=== PATIENT | female | born 1970 | race Caucasian/White ===

== ENCOUNTER 2019-07-27 18:47 | Observation (INO) ==
[2019-07-27] MEDS ORDERED: IOPAMIDOL 100 ML BOTTLE IV ONE (18:48)
[2019-07-27] MEDS ORDERED: 0.9 % SODIUM CHLORIDE 1,000 ML IV ONE (18:59)
[2019-07-27] MEDS ORDERED: ONDANSETRON 4 MG/2 ML VIAL IV ONE (18:59)
--- NOTE | 2019-07-27 19:03 | Emergency Department Note ---
Abdominal Pain HPI - General Chief Complaint: Abdominal Pain Stated Complaint: right lower quadrant pain, nausea Time Seen by Provider: 07/27/19 18:53 Source: patient Mode of arrival: ambulatory Limitations: no limitations - History of Present Illness HPI Narrative: 48-year-old female with a history of right lower quadrant pain since 3:00 this morning or approximately 17 hours. No fever but is having nausea. Small amount of diarrhea this morning. She did eat lunch but not dinner. Notes that hurts to move around. She still has her gallbladder and her appendix - Related Data Home Medications Medication Instructions Recorded Confirmed Omeprazole 20 mg PO 07/27/19 Allergies Allergy/AdvReac Type Severity Reaction Status Date / Time No Known Drug Allergies Allergy Verified 07/27/19 18:50 Review of Systems All systems ED: reviewed and negative except as stated. Abdominal Pain PMH - Past Medical History Attestation: Yes: The following information was validated with the patient. [facility] Narrative: Medical History (Last Reviewed 07/27/19 @ 17:56 by Funmi Wolfe DO) Pharyngitis (Acute) Foot sprain (Acute) Medical History (Last Reviewed 07/27/19 @ 17:56 by Funmi Wolfe DO) Pharyngitis (Acute) Foot sprain (Acute) Medical history: Reports: no medical history Surgical history ED: Reports: tonsillectomy, tubal ligation [employer] history: Reports: non-contributory - Social History Smoking status: Never smoker Alcohol use: Reports: Rarely Drug use: Reports: none Physical Exam Normocephalic atraumatic. Conjunctive are clear sclerae white and icteric. No nasal discharge or congestion. Oropharynx pink and moist. Neck is supple without lymphadenopathy thyromegaly. Heart is regular rate and rhythm no murmur appreciated. Clear to auscultation bilaterally without wheezes rales rhonchi or respiratory distress. Abdomen soft nondistended but tender in the right lower quadrant at McBurney's point. No guarding. No pedal edema. +2 radial pulse. Alert oriented able to answer questions properly Limitations: no limitations Course Vital Signs Temperature 97.9 F 07/27/19 18:48 Pulse Rate 112 H 07/27/19 18:48 Respiratory Rate 18 07/27/19 18:48 Blood Pressure 137/101 07/27/19 18:48 Pulse Oximetry (%) 97 09/23/19 18:48 Temperature 97.9 F 07/27/19 18:48 Pulse Rate 82 07/27/19 20:16 Respiratory Rate 18 07/27/19 18:48 Blood Pressure 124/72 07/27/19 20:16 Pulse Oximetry (%) 95 07/27/19 20:16 Abdominal Pain - Lab Data Lab results reviewed: Yes I reviewed the patient's lab results. Result diagrams: 07/27/19 19:09 07/27/19 19:09 Lab Results 07/27/19 07/27/19 07/27/19 Range/Units 18:54 19:09 19:09 WBC 12.0 H (4.5-11.0) K/mcL RBC 3.93 L (4.00-5.20) M/mcL Hgb 10.4 L (12.0-15.0) g/dL Hct 31.8 L (36.0-48.0) % POC Hct 31.0 L (36.0-48.0) % MCV 80.8 (80.0-100.0) fL MCH 26.4 (26.0-34.0) pg MCHC 32.7 (31.0-36.0) g/dL RDW 17.9 H (11.5-14.5) % Plt Count 346 (140-440) K/mcL MPV 8.0 (7.4-10.4) fL Gran % 66.9 (38.0-78.0) % Lymph % (Auto) 25.7 (15.5-49.0) % Highland % (Auto) 5.7 (1.0-12.0) % Eos % (Auto) 0.9 (0.0-7.0) % Baso % (Auto) 0.8 (0.0-2.0) % Gran # 8.0 (1.8-8.0) K/mcL Lymph # (Auto) 3.1 (1.5-4.8) K/mcL Highland # (Auto) 0.7 (0.1-0.9) K/mcL Eos # (Auto) 0.1 (0.0-0.7) K/mcL Baso # (Auto) 0.1 (0.0-0.3) K/mcL VBG Lactic Acid 1.0 (0.5-2.0) mmol/L POC Sodium 138 (133-145) mmol/L Sodium 137 (133-145) mmol/L POC Potassium 3.5 (3.3-5.1) mmol/L Potassium 3.6 (3.3-5.1) mmol/L POC Chloride 106 (96-108) mmol/L Chloride 100 (96-108) mmol/L Carbon Dioxide 19 L (22-30) mmol/L POC Total CO2 21 L (22-30) mmol/L Anion Gap 18.0 H (8-16) POC BUN 13 (6-20) mg/dl BUN 14 (6-20) mg/dl Creatinine 1.0 (0.6-1.1) mg/dl POC Creatinine 1.0 (0.6-1.1) mg/dl GFR Calculation 67 Glucose 93 (70-105) mg/dL POC Glucose 94 (70-105) mg/dL Calcium 8.8 (8.6-10.4) mg/dl POC WB Ioniz Calcium 1.11 L (1.16-1.32) mmol/L Total Bilirubin 0.3 (0.0-1.0) mg/dL AST 17 (0-37) U/l ALT 17 (0-40) U/l Alkaline Phosphatase 95 (39-117) U/L Total Protein 7.5 (5.9-8.4) gm/dL Albumin 4.2 (3.2-5.2) gm/dL Globulin 3.3 (2.2-3.7) gm/dL Albumin/Globulin Ratio 1.3 (1.0-2.3) Lipase 27 (7-60) U/L - Radiology Data Radiology results reviewed: Yes I reviewed the patient's radiology results. [facility] read of CT scan of the abdomen pelvis with contrast shows dilated appendix with fat stranding consistent with acute appendicitis Disposition Pt seen by [employer] PSYCHOLOGIST/PA only: No Clinical Impression: Acute appendicitis Qualifiers: Acute appendicitis type: unspecified acute appendicitis type Qualified Code(s): K35.80 - Unspecified acute appendicitis Summary: Concern for appendicitis versus female pelvic pathology. Order CT scan laboratory. Pain medicine nausea medicine and IV fluids ordered She does have leukocytosis and CT findings consistent with appendicitis. General surgery, Dr. Mirza Goldman was contacted. He agreed to accept the patient. I will write transition orders and he will see the patient first thing in the morning. We will keep her n.p.o. after midnight in anticipation of surgery tomorrow. Start Zosyn Disposition: Xfer As Outpt/Obs ([facility]) Condition: Fair Referrals: Sita Hopson ARNP [Primary Care Provider] - Mirza Goldman MD [Physician] -
[2019-07-27 19:17] LABS: POC Blood Urea Nitrogen 13 mg/dl (6-20); POC CO2 21 mmol/L (22-30); POC Calcium, Ionized 1.11 mmol/L (1.16-1.32); POC Chloride 106 mmol/L (96-108); POC Glucose, Random 94 mg/dL (70-105); POC Potassium 3.5 mmol/L (3.3-5.1); POC Sodium 138 mmol/L (133-145)
[2019-07-27] MEDS: HYDROmorphone 2 MG/ML VIAL IV PRN ×2 (19:23→21:37)
[2019-07-27 19:52] LABS: Basophils # (Auto) 0.1 K/mcL (0.0-0.3); Basophils % (Auto) 0.8 % (0.0-2.0); Eosinophils # (Auto) 0.1 K/mcL (0.0-0.7); Eosinophils % (Auto) 0.9 % (0.0-7.0); Granulocytes % (Auto) 66.9 % (38.0-78.0); Hematocrit 31.8 % (36.0-48.0); Hemoglobin 10.4 g/dL (12.0-15.0); Lymphocytes # (Auto) 3.1 K/mcL (1.5-4.8); Lymphocytes % (Auto) 25.7 % (15.5-49.0); Mean Cell Volume 80.8 fL (80.0-100.0); Mean Corpuscular HGB Conc 32.7 g/dL (31.0-36.0); Monocytes # (Auto) 0.7 K/mcL (0.1-0.9); Monocytes % (Auto) 5.7 % (1.0-12.0); Platelet Count 346 K/mcL (140-440); RBC 3.93 M/mcL (4.00-5.20); Red Cell Distribution Width 17.9 % (11.5-14.5)
[2019-07-27 20:09] LABS: ALT/SGPT 17 U/l (0-40); AST/SGOT 17 U/l (0-37); Albumin 4.2 gm/dL (3.2-5.2); Albumin/Globulin Ratio 1.3 (1.0-2.3); Alkaline Phosphatase 95 U/L (39-117); Bilirubin,Total 0.3 mg/dL (0.0-1.0); Blood Urea Nitrogen 14 mg/dl (6-20); Calcium 8.8 mg/dl (8.6-10.4); Carbon Dioxide 19 mmol/L (22-30); Chloride 100 mmol/L (96-108); Globulin 3.3 gm/dL (2.2-3.7); Glomerular Filtration Rate 67; Glucose 93 mg/dL (70-105)
[2019-07-27] MEDS ORDERED: PIPERACILLIN SODIUM/TAZOBACTAM 3.375 GM in DEXTROSE 5% IN WATER 50 ML IV ONE (20:59)
[2019-07-27] MEDS ORDERED: ACETAMINOPHEN 325 MG TABLET PO PRN (21:01)
[2019-07-27] MEDS: ONDANSETRON 4 MG/2 ML VIAL IV PRN (21:37)
[2019-07-27] MEDS ORDERED: METOCLOPRAMIDE 10 MG/2 ML VIAL IV ONE (21:46)
[2019-07-27] MEDS: LACTATED RINGERS 1,000 ML IV SCH (22:15)
[2019-07-28] MEDS: PIPERACILLIN SODIUM/TAZOBACTAM 3.375 GM in DEXTROSE 5% IN WATER 50 ML IV SCH ×4 (04:48→17:28)
[2019-07-28] MEDS: ONDANSETRON 4 MG/2 ML VIAL IV PRN (04:58)
--- NOTE | 2019-07-28 05:05 | Cat Scan Report ---
CLINICAL INFORMATION: Right lower quadrant pain COMPARISON: Abdominal ultrasound 12/19/2008 TECHNIQUE: Following enteric contrast, 80 cc of Isovue-370 were injected intravenously, and 60 seconds later, 0.625 mm helical slices were obtained from the mid heart through the subtrochanteric regions. Following reconstruction, 2.5 mm sagittal, coronal and axial reformatted images were processed and reviewed at bone, lung and soft tissue windows. Five minutes later, 0.625 mm helical slices were obtained from the mid heart through the kidneys and viewed at soft tissue windows.The exam was performed using radiation dose optimization techniques including, but not limited to, automated exposure control, adjustment of the mA and/or kV according to patient size and use of iterative reconstruction technique. FINDINGS: Lung bases show no abnormality - no effusion. Small hiatal hernia appreciated. Visualized heart is grossly normal. Abdominal images show the gallbladder and bile ducts, liver, right kidney, both adrenal glands, spleen, pancreas and aorta, including aortic branches, are normal in size configuration and attenuation without focal lesion. There are multiple parapelvic cysts in left kidney which have developed since the 2008 renal ultrasound.These do result in effacement of the renal pelvis and calyces which may result in relative urinary stasis predisposing to infection and stone formation. Pelvic images show anteflexed uterus which is enlarged: 11 x 5.4 cm. Urinary bladder is normal. Both ovaries are unremarkable. There is a 12 x 8.5 cm region of olamide increased attenuation within mesenteric fat root in the posterior central abdomen could represent a focus of mesenteritis. The appendix is mildly dilated, 9 mm, with slight wall thickening and inflammation in the periappendiceal fat compatible with simple appendicitis. It is located in the lateral pericecal region. The colon, stomach and small bowel are unremarkable. Bone windows show no osseous abnormality. At L5-S1, right-sided disc spur complex results in moderate right IV foraminal narrowing impinging the exiting right L5 nerve root IMPRESSION: 1. Simple appendicitis. The appendix is located in the lateral pericecal region. 2. 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 This is a noninfectious inflammatory condition which may or may not be symptomatic. It is typically treated with glucocorticoids when symptomatic. 3. Anteflexed moderately enlarged uterus. The most common cause for an enlarged, yet morphologically normal, uterus is adenomyosis. 4. Moderate far right L5-S1 disc spur complex resulting in moderate right IV foraminal narrowing impinging the exiting right L5 nerve root. Please correlate with right L5 radiculopathy symptoms 5. Multiple parapelvic cysts in the left kidney - new from 2008 renal ultrasound. They efface the renal pelvis and calyces resulting in relative urinary stasis possibly predisposing to infection and stone formation. 6. Small hiatal hernia Interpreted and Authenticated by: Luis Chawla 07/28/19
[2019-07-28] MEDS: LACTATED RINGERS 1,000 ML IV SCH (09:15)
--- NOTE | 2019-07-28 09:23 | XRay Report ---
CLINICAL INFORMATION: Preop COMPARISON: None. TECHNIQUE: PA and Lateral views FINDINGS: The heart size, mediastinum and pulmonary vessels are unremarkable. The lungs are clear. There are no effusions. The bones and soft tissues are within normal limits. IMPRESSION: Normal chest. Interpreted and Authenticated by: Luis Chawla 07/28/19
[2019-07-28 10:05] LABS: Prothrombin Time 13.6 sec (11.9-14.5)
--- NOTE | 2019-07-28 12:05 | General Surg History&Physical ---
History of Present Illness Patient information: Note initiated : 07/28/19 at 12:03 pm Service Date, if different from initiated Date: [] Patient: Magnolia Esquivel a 48 y/o F admitted on 07/27/19 for right lower quadrant pain, nausea. Chief Complaint: [] HPI: Ms. Esquivel is a 48 year old F admitted with acute appendicitis. The patient had onset of abdominal pain about 3 AM yesterday. She had a sharp pain in her right lower abdomen. She had nausea with vomiting. She was able to work and was seen in the vomit care clinic last evening. They referred her to the emergency room. Her white count was 12,000 and hemoglobin 10.4. HCG was negative for . CT shows dilated appendix with periappendiceal tissue e elliott compatible with appendicitis. Patient was admitted and will be scheduled for appendectomy later today Review of Systems All systems PM: reviewed and no additional remarkable complaints except as stated (negative except as noted in HPI) Past History Past medical history: No chronic medical illnesses Past surgical history: Tubal ligation ORIF left ankle Removal of hardware left ankle Past family history: Never smoker Occasional alcohol use Denies drug use Past social history: Mother alive age 79 in excellent health Father age 65 due to stroke complications of pneumonia 5 siblings are all well without illness Medications and Allergies Home Medications Medication Instructions Recorded Confirmed Type Omeprazole 20 mg PO QAM 07/27/19 07/27/19 History Allergies Allergy/AdvReac Type Severity Reaction Status Date / Time hydromorphone AdvReac Mild Nausea Verified 07/28/19 00:18 Exam Temp Pulse Resp BP Pulse Ox 97.3 F 68 12 139/76 97 07/28/19 11:31 07/28/19 11:31 07/28/19 11:31 07/28/19 11:31 07/28/19 11:49 - General physical appearance well developed, well nourished, no distress - Eyes PERRL, normal ocular movement - ENT normal pinna, normal nares, normal mucosa, no hearing loss, no congestion - Head Head exam IM: Present: atraumatic, normocephalic - Neck no masses, no bruits, trachea midline, no lymphadenopathy, no venous distension - Cardiovascular Cardiovascular exam IM: Present: normal rate and rhythm - Respiratory normal expansion, normal respiratory effort, clear to percussion, clear to auscultation - Abdomen Abdomen: Present: soft, tender (moderate tenderness with guarding in the right lower quadrant; Active bowel sounds; no mass), bowel sounds Hernia: Present: none - Genitourinary Present: normal external genitalia - Integumentary Present: no rash, no growths, no abnormal pigmentation - Neurologic Present: normal coordination, normal sensation - Musculoskeletal Present: normal gait, normal posture - Psychiatric Present: oriented to time, oriented to person, oriented to place, speech is normal, memory intact Assessment and Plan (1) Acute appendicitis Status: Acute Qualifiers: Acute appendicitis type: unspecified acute appendicitis type Qualified Code(s): K35.80 - Unspecified acute appendicitis
[2019-07-28] MEDS ORDERED: ROCURONIUM 10 MG/ML ML IV ONE (13:00)
[2019-07-28] MEDS ORDERED: SUGAMMADEX SODIUM 200 MG/2 ML VIAL IV ONE (13:00)
[2019-07-28] MEDS ORDERED: ONDANSETRON 4 MG/2 ML VIAL IV ONE (13:00)
[2019-07-28] MEDS ORDERED: fentaNYL 250 MCG/5 ML VIAL IV ONE (13:00)
[2019-07-28] MEDS ORDERED: LIDOCAINE HCL/PF 100 MG/5 ML SYRINGE IV ONE (13:00)
[2019-07-28] MEDS ORDERED: PROPOFOL 200 MG/20 ML VIAL IV ONE (13:00)
[2019-07-28] MEDS ORDERED: DEXAMETHASONE 10 MG/ML VIAL IV ONE (13:00)
[2019-07-28] MEDS ORDERED: diphenhydrAMINE 50 MG/ML VIAL IV PRN (13:29)
[2019-07-28] MEDS ORDERED: fentaNYL 100 MCG/2 ML VIAL IV PRN (13:29)
[2019-07-28] MEDS ORDERED: ONDANSETRON 4 MG/2 ML VIAL IV PRN ×2 (13:29→15:02)
[2019-07-28] MEDS ORDERED: IPRATROPIUM/ALBUTEROL 3 ML AMPUL.NEB NEB PRN (13:29)
[2019-07-28] MEDS ORDERED: LACTATED RINGERS 250 ML IV PRN (13:29)
[2019-07-28] MEDS ORDERED: MEPERIDINE 25 MG/ML SYRINGE IV PRN (13:29)
[2019-07-28] MEDS ORDERED: ACETAMINOPHEN 1,000 MG/100 ML BOTTLE IV ONE (13:29)
[2019-07-28] MEDS ORDERED: NALOXONE HCL 0.4 MG/ML VIAL IV PRN (13:29)
[2019-07-28] MEDS ORDERED: PROMETHAZINE 25 MG/ML VIAL IV PRN (13:29)
[2019-07-28] MEDS ORDERED: FLUMAZENIL 0.1 MG/ML ML IV PRN (13:29)
[2019-07-28] MEDS ORDERED: BENZOCAINE/MENTHOL 1 LOZENGE PO PRN (13:29)
[2019-07-28] MEDS ORDERED: LACTATED RINGERS 1,000 ML IV SCH ×2 (13:30→15:02)
--- NOTE | 2019-07-28 13:56 | Brief Operative Note ---
Date of procedure: 07/28/19 Pre-op diagnosis: acute appendicitis Post-op diagnosis: other (acute appendicitis) Procedure: laparoscopic appendectomy Grafts/Implants: No Anesthesia: GETA Findings: acute suppurative appendicitis Complications: none Surgeon: Mat Goldman Estimated blood loss (cc): 20 Specimens Removed/Pathology: other (appendix) Condition: stable Disposition: PACU
[2019-07-28] MEDS ORDERED: ACETAMINOPHEN 325 MG TABLET PO PRN (15:02)
[2019-07-28] MEDS ORDERED: HYDROmorphone 2 MG/ML VIAL IV PRN (15:02)
[2019-07-28] MEDS: 0.9 % SODIUM CHLORIDE 10 ML SYRINGE IV SCH ×2 (15:19→22:24)
[2019-07-28] MEDS: 0.9 % SODIUM CHLORIDE 1,000 ML IV SCH (15:43)
[2019-07-28] MEDS: fentaNYL 100 MCG/2 ML VIAL IV PRN ×2 (15:43→19:32)
--- NOTE | 2019-07-28 16:22 | Operative Note ---
DATE OF OPERATION: 07/28/2019 PREOPERATIVE DIAGNOSIS: Acute appendicitis. POSTOPERATIVE DIAGNOSIS: Acute appendicitis. PROCEDURE: Laparoscopic appendectomy. SURGEON: Mat Goldman M.D. FINDINGS: Acute suppurative appendicitis. DESCRIPTION OF PROCEDURE: Under general anesthesia, the patient's abdomen was prepped and draped in a sterile field. Supraumbilical midline incision was made. Veress needle was inserted uneventfully. The abdomen was insufflated with 3 liters of CO2. A 12 mm port was placed. Laparoscope was placed. Under videoscopic guidance, a 5 mm port was placed in the suprapubic midline and a 12 mm port in the left lower quadrant. The patient was positioned in deep Trendelenburg position and rotated to the left. The appendix was found lateral to the cecum. It was grasped with a self-retaining grasper. A window was made in the mesoappendix at the base. The base of the appendix was transected using the Endo TUYET stapler. The mesoappendix was stapled using the Endo TUYET stapler. There was some residual bleeding which was controlled with multiple hemostatic lilia. The appendix was placed in an Endopouch and retrieved. Irrigation was carried out. No further bleeding was noted. CO2 was allowed to escape from the abdomen, and the ports were removed. The fascia at the umbilicus was closed with multiple sutures of 0 Vicryl. Skin incisions were closed with lilia. Tegaderm dressings were placed. The patient tolerated the procedure well. She was awakened, transferred to a bed, and taken to the postanesthetic care unit in a stable, satisfactory condition. LCS:gurjit Job ID: [id number] Doc ID: [id number] Mat Goldman M.D.
[2019-07-28] MEDS: HYDROcodone/APAP 5/325MG TABLET PO PRN (17:52)
[2019-07-28] MEDS: OMEPRAZOLE 20 MG CAPSULE PO SCH (19:47)
[2019-07-29] MEDS: HYDROcodone/APAP 5/325MG TABLET PO PRN ×4 (00:14→13:20)
[2019-07-29 05:45] LABS: Basophils # (Auto) 0 K/mcL (0.0-0.3); Basophils % (Auto) 0.1 % (0.0-2.0); Eosinophils # (Auto) 0 K/mcL (0.0-0.7); Eosinophils % (Auto) 0 % (0.0-7.0); Granulocytes % (Auto) 86.1 % (38.0-78.0); Hematocrit 28.5 % (36.0-48.0); Hemoglobin 9.2 g/dL (12.0-15.0); Lymphocytes # (Auto) 1.1 K/mcL (1.5-4.8); Lymphocytes % (Auto) 10.6 % (15.5-49.0); Mean Corpuscular HGB Conc 32.5 g/dL (31.0-36.0); Mean Platelet Volume 7.7 fL (7.4-10.4); Monocytes # (Auto) 0.3 K/mcL (0.1-0.9); Monocytes % (Auto) 3.2 % (1.0-12.0); Platelet Count 353 K/mcL (140-440); RBC 3.51 M/mcL (4.00-5.20); Red Cell Distribution Width 17.8 % (11.5-14.5); WBC 10.3 K/mcL (4.5-11.0)
[2019-07-29] MEDS: 0.9 % SODIUM CHLORIDE 1,000 ML IV SCH (05:55)
[2019-07-29] MEDS: PIPERACILLIN SODIUM/TAZOBACTAM 3.375 GM in DEXTROSE 5% IN WATER 50 ML IV SCH ×3 (06:10→11:26)
[2019-07-29] MEDS: 0.9 % SODIUM CHLORIDE 10 ML SYRINGE IV SCH (06:10)
[2019-07-29] MEDS: OMEPRAZOLE 20 MG CAPSULE PO SCH (08:47)
--- NOTE | 2019-07-29 11:01 | Discharge Summary ---
Providers - Providers Patient information: Note initiated : 07/29/19 at 10:59 am Service Date, if different from initiated Date: [] Patient: Magnolia Esquivel 48 y/o F admitted on 07/27/19 for right lower quadrant pain, nausea. Chief Complaint: [] Date of admission: 07/27/19 Discharge date: 07/29/19 Attending physician: Mat Goldman Hospitalization Hospital Course: 48-year-old female that was admitted on July 23 for right lower quadrant pain and leukocytosis and CT evidence of acute appendicitis. She went underwent laparoscopic appendectomy on July 23. She had acute suppurative appendicitis. She has done well without complaints. White count 10.3, hemoglobin 9.2, hematocrit 28.5. Patient is clinically stable for discharge. Discharge diagnosis: acute appendicitis Reason for admission: abdominal pain ,nausea and vomiting Procedures: Laparoscopic appendectomy Pertinent studies/significant findings: CT of abdomen and pelvis with contrast Complications: None Exam Temp Pulse Resp BP Pulse Ox 98.0 F 68 18 133/73 99 07/29/19 08:00 07/29/19 08:00 07/29/19 08:00 07/29/19 08:00 07/29/19 08:00 - General physical appearance well developed, well nourished, no distress - Eyes PERRL, normal ocular movement - ENT normal pinna, normal nares, normal mucosa, no hearing loss, no congestion - Head Head exam IM: Present: atraumatic, normocephalic - Neck no masses, no bruits, trachea midline, no lymphadenopathy, no venous distension - Cardiovascular Cardiovascular exam IM: Present: normal rate and rhythm - Respiratory normal expansion, normal respiratory effort, clear to percussion, clear to auscultation - Abdomen Abdomen: Present: tender (mild tenderness around port sites; good active bowel sounds), bowel sounds Hernia: Present: none - Genitourinary Present: normal external genitalia - Integumentary Present: no rash, no growths, no abnormal pigmentation - Neurologic Present: normal coordination, normal sensation - Musculoskeletal Present: normal gait, normal posture - Psychiatric Present: oriented to time, oriented to person, oriented to place, speech is normal, memory intact Discharge Plan - Patient/Caregiver Discharge Instructions Activity: increase activity as tolerated Diet: Regular Diet Prescriptions: HYDROcodone/APAP 5/325MG [[place] 5-325Mg] 1 tab PO Q4HP PRN #30 tab PRN Reason: Pain Level 3-6 Prescription Printed - Follow up Plan Follow up with: Sita Hopson ARNP [Primary Care Provider] - Mat Goldman MD [Physician] - () Disposition: Home, Self-Care Prognosis: Good Rehab Potential: Good I certify that the patient requires SNF services.: No Overall status at discharge: patient is progressing back to baseline Pending Studies Resuscitation Status Full Code Diet Clear Liquid Diet Start SatJul 28 1512 Hydrocodone Bitart/Acetaminophen ([place] 5/325mg) 1 tab PO Q4HP PRN PRN Reason: PAIN LEVEL 3-6 Last Admin: 07/29/19 08:50 Dose: 1 tab Documented by: [email or web address] Admin: 07/29/19 04:25 Dose: 1 tab Documented by: Admin: 07/29/19 00:14 Dose: 1 tab Documented by: Admin: 07/28/19 17:52 Dose: 1 tab Documented by: [email or web address] Fentanyl (Sublimaze) 25 mcg IV Q2HP PRN PRN Reason: PAIN LEVEL > 6 Last Admin: 07/28/19 19:32 Dose: 25 mcg Documented by: Admin: 07/28/19 15:43 Dose: 25 mcg Documented by: [email or web address] Piperacillin Sod/Tazobactam (Sod 3.375 gm/ Dextrose) 50 mls @ 100 mls/hr IV Q6H JEANINE; Protocol Last Infusion: 07/29/19 06:40 Dose: 0 mls/hr Documented by: [email or web address] Admin: 07/29/19 06:10 Dose: 100 mls/hr Documented by: Infusion: 07/29/19 00:30 Dose: 100 mls/hr Documented by: Admin: 07/29/19 00:00 Dose: 100 mls/hr Documented by: Infusion: 07/28/19 18:02 Dose: 0 mls/hr Documented by: [email or web address] Admin: 07/28/19 17:28 Dose: 100 mls/hr Documented by: [email or web address] Sodium Chloride (Sodium Chloride 0.9%) 1,000 mls @ 75 mls/hr IV .[id number] JEANINE Last Admin: 07/29/19 05:55 Dose: 75 mls/hr Documented by: [email or web address] Infusion: 07/29/19 05:03 Dose: 75 mls/hr Documented by: Admin: 07/28/19 15:43 Dose: 75 mls/hr Documented by: [email or web address] Omeprazole (Prilosec) 20 mg PO ACB [facility] Last Admin: 07/29/19 08:47 Dose: 20 mg Documented by: [email or web address] Admin: 07/28/19 19:47 Dose: 20 mg Documented by: KAREN Sodium Chloride (Saline Flush) 10 ml IV Q8 [facility] Last Admin: 07/29/19 06:10 Dose: Not Given Documented by: Admin: 07/28/19 22:24 Dose: Not Given Documented by: Admin: 07/28/19 15:19 Dose: Not Given Documented by: [email or web address] Shift Summary 07/29/19 03:18 Shift Summary by Chasity Koenig Pt is A&Ox4. SBP running in the 140s - VSS on RA. Up to BR w/SBA. Pt has not yet ambulated in the hallway, but ambulated to/from BR a few times. 3 lap sites to abdomen - lilia & film dressing w/moderate drainage. Pt received [place] x1 and Fentanyl x1 for pain. IV to LFA w/NS @ 75 ml/hr. Tolerating clear liquid diet. Will update with verbal report. Initialized on 07/29/19 03:18 - END OF NOTE
--- NOTE | 2019-07-29 12:37 | Surgical Pathology Report ---
HISTOLOGY SPECIMEN MICROSCOPIC DIAGNOSIS APPENDIX, APPENDECTOMY: -- ACUTE APPENDICITIS. (EBD:sln) GROSS DESCRIPTION Received in formalin labeled appendix, is a 5.1 cm in length by up to 0.7 cm in diameter pink-patel appendix with up to 1.7 cm of attached yellow-patel adipose tissue. The proximal margin is closed with a staple line. Serially sectioned with the proximal section inked black. [employer] sections submitted - one cassette. (KGW:octavio) Electronically Signed by: Corinna Nolasco M.D.
== END 2019-07-29 13:30 | disposition home or self-care (01) ==
LOC: ED 18:47 → MEDSUR 18:47
PROVIDERS: ADMIT Family Medicine Adult Medicine; ATTEND Family Medicine Adult Medicine